=== PATIENT | male | born 1955 | race African-American/Black ===

== ENCOUNTER → 2019-01-25 | Outpatient (CLI) | payer OTHER ==
[2019-01-25 09:29] LABS: BASO % 0.5 % (0.0-1.0); EOS # 0.4 10^3/uL (0.0-0.50); EOS % 5.8 % (0.0-3.0); HEMATOCRIT 27.6 % (42.0-52.0); HEMOGLOBIN 8.7 g/dl (13.5-17.5); LYMPH # 2.8 10^3/uL (1.5-4.5); LYMPH % 46.1 % (24.0-44.0); MEAN CORPUSCULAR HEMOGLOBIN 30.5 pg (27.0-33.0); MEAN CORPUSCULAR HGB CONC 31.5 g/dl (32.0-36.5); MEAN CORPUSCULAR VOLUME 96.8 fl (80.0-96.0); MONO # 0.5 10^3/uL (0.0-0.8); MONO % 7.4 % (0.0-5.0); NEUTROPHILS # 2.4 10^3/uL (1.8-7.7); PLATELET COUNT, AUTOMATED 325 10^3/uL (150-450); RED BLOOD COUNT 2.85 10^6/uL (4.30-6.10); WHITE BLOOD COUNT 6.1 10^3/uL (4.0-10.0)
[2019-01-25 09:49] LABS: HEMOGLOBIN A1c 5.4 %
[2019-01-25 10:02] LABS: APPEARANCE, URINE CLEAR (CLEAR); BACTERIA, URINE AUTO NEGATIVE (NEGATIVE); BILIRUBIN, URINE AUTO NEGATIVE (NEGATIVE); BLOOD, URINE BLOOD NEGATIVE (NEGATIVE); COLOR, URINE YELLOW (YELLOW); GLUCOSE, URINE (UA) AUTO NEGATIVE (NEGATIVE); KETONE, URINE AUTO TRACE mg/dL (NEGATIVE); LEUKOCYTE ESTERASE, URINE AUTO NEGATIVE (NEGATIVE); MUCUS, URINE SMALL (NEGATIVE); NITRITE, URINE AUTO NEGATIVE (NEGATIVE); PROTEIN, URINE AUTO NEGATIVE (NEGATIVE); RBC, URINE AUTO 2 /HPF (0-3); SPECIFIC GRAVITY URINE AUTO 1.018 (1.002-1.035); SQUAMOUS EPITHELIAL CELL UR AU 0 /HPF (0-6); UROBILINOGEN, URINE AUTO 0.2 mg/dL (0.0-2.0); WBC, URINE AUTO 0 /HPF (0-3)
[2019-01-25 10:03] LABS: ALT/SGPT 11 U/L (12-78); BILIRUBIN,TOTAL 0.3 MG/DL (0.2-1.0); BLOOD UREA NITROGEN 11 MG/DL (7-18); CALCIUM LEVEL 8.5 MG/DL (8.8-10.2); CARBON DIOXIDE LEVEL 25 MEQ/L (21-32); CHLORIDE LEVEL 109 MEQ/L (98-107); CHOLESTEROL LEVEL 236 MG/DL (<200); CREATININE FOR GFR 1.13 MG/DL (0.70-1.30); GLOMERULAR FILTRATION RATE > 60.0 (>49); GLUCOSE, FASTING 73 MG/DL (70-100); HDL CHOLESTEROL 46 MG/DL (>40); LDL CHOLESTEROL 164 MG/DL (<100); NON-HDL-C 190 MG/DL; PROSTATIC SPECIFIC AG MONITOR < 0.01 NG/ML (< 4.00); SODIUM LEVEL 139 MEQ/L (136-145); TOTAL PROTEIN 7.1 GM/DL (6.4-8.2); TRIGLYCERIDES LEVEL 130 MG/DL (<150)
[2019-01-25 10:04] LABS: TOTAL 25(OH) VITAMIN D 8.8 NG/ML (30.0-100.0)
[2019-01-26 14:43] LABS: Lyme Disease IgG/IgM Antibodie <0.91 ISR (0.00-0.90); Lyme Disease IgM Ab Quantitati <0.80 index (0.00-0.79)
== END ==
LOC: M LAB 08:30
PROVIDERS: ATTEND Family Medicine
DX: Z13.228 Encounter for screening for other metabolic disorders (principal); Z12.5 Encounter for screening for malignant neoplasm of prostate

== ENCOUNTER → 2019-04-30 | Outpatient (REF) | payer OTHER, MEDICAID ==
[2019-04-30 16:03] LABS: BASO % 0.5 % (0.0-1.0); EOS # 0.3 10^3/uL (0.0-0.50); HEMATOCRIT 30.7 % (42.0-52.0); LYMPH # 3.8 10^3/uL (1.5-4.5); LYMPH % 46.1 % (24.0-44.0); MEAN CORPUSCULAR HEMOGLOBIN 31.5 pg (27.0-33.0); MEAN CORPUSCULAR HGB CONC 32.6 g/dl (32.0-36.5); MEAN CORPUSCULAR VOLUME 96.8 fl (80.0-96.0); MONO # 0.6 10^3/uL (0.0-0.8); MONO % 7.7 % (0.0-5.0); NEUTROPHILS # 3.4 10^3/uL (1.8-7.7); NEUTROPHILS % 41.5 % (36.0-66.0); PLATELET COUNT, AUTOMATED 392 10^3/uL (150-450); RED BLOOD COUNT 3.17 10^6/uL (4.30-6.10); WHITE BLOOD COUNT 8.2 10^3/uL (4.0-10.0)
== END ==
LOC: M LAB REF 15:26
PROVIDERS: ATTEND Family Medicine
DX: D64.89 Other specified anemias (principal)

== ENCOUNTER → 2019-05-31 | Outpatient (CLI) | payer OTHER ==
--- NOTE | 2019-05-31 14:36 | REP ---
REASON: Tobacco abuse. COMPARISON: None. As per the screening protocol only lung window images were sent to the read station for interpretation. In the right upper lobe, there is a spiculated lesion which measures approximately 1 cm in its greatest dimension. There is evidence of biapical pleuroparenchymal scarring. The lung paz are hyperexpanded with parenchymal bulla and pleural blebs. There is cylindrical bronchiectasis throughout. Limited evaluation of the mediastinum and pulmonary jeimy show possible anterior carinal adenopathy with a possible 1.1 cm size lymph node difficult to evaluate as per the protocol. There is no definite hilar mass. There are no pleural or pericardial effusions. Limited evaluation of the imaged upper abdomen and imaged osseous structures show no gross abnormalities. IMPRESSION: 1. Spiculated right lung nodule as described above. Diagnostic contrast enhanced CT examination of the chest is recommended as per the revised Fleischner Society criteria. 2. Possible adenopathy as described above. 3. Chronic changes and emphysematous change suspected as described above without priors for comparison. Electronically Signed by David Abreu DO 05/31/2019 02:56 P
== END ==
LOC: M RAD 11:08
PROVIDERS: ATTEND Family Medicine
DX: Z12.2 Encounter for screening for malignant neoplasm of respiratory organs (principal)

== ENCOUNTER → 2019-07-26 | Outpatient (CLI) | payer OTHER ==
[~2019-07-26] MED LIST: ACET-683 PO; ALBU8.5H INH; CYCL10TA PO; D 101000 PO; DOXY100C37 PO; INCR1INH INH; LEVO50TA5 PO; LIDO5DIS41 TD; QVAR80AE8 INH
--- NOTE | 2019-07-26 16:19 | REP ---
CT of the chest without IV contrast: Comparison is the low-dose lung screening CT dated 05/31/2019. There is an irregular spiculated nodule in the right upper lobe on image 38 measuring 1 cm in greatest diameter, similar to the prior study. There is linear stranding extending from this nodule to the lateral pleura and toward the right hilus. This is unchanged. There is a large irregular density in the right lower lobe today, not present previously measuring up to 3.2 cm. This could be an acute infiltrate or an irregular mass. On the comparison study there was an irregular thickened linear density above the left hemidiaphragmatic tone. This lesion has decreased in thickness and now has the appearance of a curvilinear parenchymal scar. There are other curvilinear parenchymal scars in the lower lobes bilaterally. There are numerous bulla throughout the lung paz bilaterally, as previously. There is bronchiectasis, as previously. There are no pleural effusions. There is a precarinal mediastinal node measuring 6 mm, borderline enlarged. There is no other mediastinal lymph node enlargement. There is no axillary lymph node enlargement. In the absence of IV contrast the study is insensitive for hilar lymph node enlargement. There are no pleural effusions. The unenhanced thoracic aorta is unremarkable. There is occasional air throughout the esophagus. This is nonspecific but may indicate a distal esophageal stricture. Cardiac size is normal. There is no pericardial effusion. Upper abdomen: There is no adrenal mass. The visualized areas of the unenhanced liver, pancreas and spleen are unremarkable. Impression: Spiculated right upper lobe nodule as described with linear stranding toward the right hilus and peripheral pleural. This is a category for a lung nodule with the probability of malignancy five - 15%. Follow-up options or 3-month follow-up chest CT and PET scan. New left lower lobe, right lower lobe 3.2 cm irregular lesion, infiltrate versus mass. Correlate clinically. Consider follow-up CT approximate 4-6 weeks. Follow-up to complete resolution is recommended. Borderline enlarged precarinal mediastinal node. Air in the esophagus, possibly indicating distal esophageal stricture. Curvilinear scar in the left lower lobe as described. Bronchiectasis. Electronically Signed by Jamil Magaña MD 07/26/2019 04:11 P
== END ==
LOC: M RAD 14:51
PROVIDERS: ATTEND Family Medicine
DX: R91.8 Other nonspecific abnormal finding of lung field (principal)

== ENCOUNTER 2019-07-30 13:25 | Emergency (ER) | payer OTHER ==
[~2019-07-30] VITALS: Ht 185.4 cm; Wt 68.6 kg
[2019-07-30] MEDS ORDERED: INCR1INH INH (13:37)
[2019-07-30] MEDS ORDERED: ACET-683 PO (13:37)
[2019-07-30] MEDS ORDERED: D 101000 PO (13:37)
[2019-07-30] MEDS ORDERED: LEVO50TA5 PO (13:37)
[2019-07-30] MEDS ORDERED: QVAR80AE8 INH (13:37)
[2019-07-30] MEDS ORDERED: ALBU8.5H INH (13:37)
--- NOTE | 2019-07-30 14:58 | REP ---
Chest x-ray: Two views. History: Shortness of breath. Comparison CT study July 26, 2019. This showed an infiltrate in the right lower lobe and a spiculated or fibrotic nodular area in the right upper lobe. Findings: There is a subtle pattern of increased density overlying the spine on the lateral film and at the right base medially on the frontal view. This is consistent with the infiltrate seen in the right lower lobe on the recent chest CT. It is probably somewhat improved. The spiculated density is not visible radiographically. No new infiltrate is seen. Impression: Subtle right lower lobe infiltrate, probably improved from its appearance on July 26, 2019 CT study. Otherwise no acute disease. Electronically Signed by Bro Mcintyre MD 07/30/2019 06:48 P
[2019-07-30] MEDS ORDERED: LIDO5DIS41 TD (15:58)
[2019-07-30] MEDS ORDERED: CYCL10TA PO (15:58)
[2019-07-30] MEDS ORDERED: DOXY100C37 PO (15:58)
[2019-07-30] MEDS ORDERED: LIDOCAINE 5% (LIDODERM) PATCH TD ONE (16:00)
[2019-07-30] MEDS ORDERED: ACETAMINOPHEN 650MG ER TAB (TYLENOL ARTHRITIS) PO ONE ×2 (16:00→17:00)
[2019-07-30 16:04] VITALS: BP 122/72
[2019-07-30] MEDS ORDERED: ACETAMINOPHEN 325 MG TAB PO ONE (16:15)
[2019-07-30] MEDS ORDERED: **NOTE PATIENT COMMENT** MISC XX SCH (21:00)
== END 2019-07-30 16:22 | disposition home or self-care (01) ==
LOC: M ED 13:25
DX: R91.8 Other nonspecific abnormal finding of lung field (principal); J44.9 Chronic obstructive pulmonary disease, unspecified; G89.29 Other chronic pain; M54.9 Dorsalgia, unspecified; F17.200 Nicotine dependence, unspecified, uncomplicated; Z79.899 Other long term (current) drug therapy

== ENCOUNTER 2019-08-23 08:11 | Day surgery (SDC) | payer OTHER ==
[~2019-08-23] VITALS: Ht 185.4 cm; Wt 66.1 kg
[~2019-08-23 08:11] MED LIST changes: +NS 1,000 ML IV ONE
[2019-08-23] MEDS ORDERED: PROPOFOL 500 MG/50 ML VIAL As Ordered ONE (09:29)
[2019-08-23] MEDS ORDERED: ePHEDrine SULFATE 25 MG/5 ML(5MG/ML) SYRINGE As Ordered ONE (09:29)
[2019-08-23] MEDS ORDERED: PHENYLephrine HCL 500 MCG/5 ML (100MCG/ML) SYRINGE (J2370) As Ordered ONE ×2 (09:29→09:35)
[2019-08-23] MEDS ORDERED: LIDOCAINE 2% INJ 100 MG/5 ML SDV (FOR ANES.) As Ordered ONE (09:29)
[2019-08-23] MEDS ORDERED: fentaNYL 100 MCG/2 ML INJECTION (J3010) As Ordered ONE (09:29)
--- NOTE | 2019-08-23 10:04 | ROOR ---
Patient Name: Niranjan Moore Procedure Date: 08/23/2019 9:14 AM Date of : 1955 Age: 64 Room: [facility] Gender: Male Note Status: Finalized Procedure: Upper GI endoscopy Indications: Weight loss Providers: Kelechi Turner MD Referring MD: Sergo DIANA MD Requesting Provider: Medicines: Monitored Anesthesia Care Complications: No immediate complications. Procedure: Pre-Anesthesia Assessment: - Prior to the procedure, a History and Physical was performed, and patient medications and allergies were reviewed. The patient is competent. The risks and benefits of the procedure and the sedation options and risks were discussed with the patient. All questions were answered and informed consent was obtained. Patient identification and proposed procedure were verified by the physician, the nurse and the anesthesiologist in the procedure room. Mental Status Examination: alert and oriented. Airway Examination: normal oropharyngeal airway and neck mobility. Respiratory Examination: clear to auscultation. CV Examination: normal. Prophylactic Antibiotics: The patient does not require prophylactic antibiotics. Prior Anticoagulants: The patient has taken no previous anticoagulant or antiplatelet agents. ASA Grade Assessment: III - A patient with severe systemic disease. After reviewing the risks and benefits, the patient was deemed in satisfactory condition to undergo the procedure. The anesthesia plan was to use monitored anesthesia care (MAC). Immediately prior to administration of medications, the patient was re-assessed for adequacy to receive sedatives. The heart rate, respiratory rate, oxygen saturations, blood pressure, adequacy of pulmonary ventilation, and response to care were monitored throughout the procedure. The physical status of the patient was re-assessed after the procedure. The Endoscope was introduced through the mouth, and advanced to the second part of duodenum. The upper GI endoscopy was accomplished without difficulty. The patient tolerated the procedure well. Findings: The Z-line was regular and was found 45 cm from the incisors. The examined esophagus was normal. Scattered moderate inflammation characterized by erosions, erythema, friability and granularity was found in the gastric body and in the gastric antrum. Biopsies were taken with a cold forceps for Helicobacter pylori testing. Verification of patient identification for the specimen was done by the physician and nurse using the patient's name, date and medical record number. Estimated blood loss was minimal. The duodenal bulb and second portion of the duodenum were normal. Biopsies for histology were taken with a cold forceps for evaluation of celiac disease. Impression: - Z-line regular, 45 cm from the incisors. - Normal esophagus. - Gastritis. Biopsied. - Normal duodenal bulb and second portion of the duodenum. Biopsied. Recommendation: - Patient has a contact number available for emergencies. The signs and symptoms of potential delayed complications were discussed with the patient. Return to normal activities tomorrow. Written discharge instructions were provided to the patient. - Resume regular diet. - Continue present medications. - Await pathology results. - Return to GI clinic in [facility] (address [address], [address], [place] [address]) in 4 -- 6 weeks. Please call GI clinic @ [phone] for apppointment date and time. - Return to primary care physician. Kelechi Turner MD Kelechi Turner MD 08/23/2019 10:03:55 AM Electronically signed by Kelechi Turner MD Number of Addenda: 0 Note Initiated On: 08/23/2019 9:14 AM Estimated Blood Loss: Estimated blood loss was minimal.
[2019-08-23 10:25] VITALS: BP 75/50
--- NOTE | 2019-09-04 08:36 | ROOR ---
Patient Name: Niranjan Moore Procedure Date: 08/23/2019 9:15 AM Date of : 1955 Age: 64 Room: [facility] Gender: Male Note Status: Finalized Procedure: Colonoscopy Indications: Hematochezia, Iron deficiency anemia, Weight loss Providers: Kelechi Turner MD Referring MD: Sergo DIANA MD Requesting Provider: Medicines: Monitored Anesthesia Care Complications: No immediate complications. Procedure: Pre-Anesthesia Assessment: - Prior to the procedure, a History and Physical was performed, and patient medications and allergies were reviewed. The patient is competent. The risks and benefits of the procedure and the sedation options and risks were discussed with the patient. All questions were answered and informed consent was obtained. Patient identification and proposed procedure were verified by the physician, the nurse and the anesthesiologist in the pre-procedure area in the procedure room. Mental Status Examination: normal. Airway Examination: normal oropharyngeal airway and neck mobility. Respiratory Examination: clear to auscultation. CV Examination: normal. Prophylactic Antibiotics: The patient does not require prophylactic antibiotics. Prior Anticoagulants: The patient has taken no previous anticoagulant or antiplatelet agents. ASA Grade Assessment: II - A patient with mild systemic disease. After reviewing the risks and benefits, the patient was deemed in satisfactory condition to undergo the procedure. The anesthesia plan was to use monitored anesthesia care (MAC). Immediately prior to administration of medications, the patient was re-assessed for adequacy to receive sedatives. The heart rate, respiratory rate, oxygen saturations, blood pressure, adequacy of pulmonary ventilation, and response to care were monitored throughout the procedure. The physical status of the patient was re-assessed after the procedure. The Colonoscope was introduced through the anus and advanced to the terminal ileum, with identification of the appendiceal orifice and IC valve. The colonoscopy was performed without difficulty. The patient tolerated the procedure well. The quality of the bowel preparation was good. The terminal ileum, ileocecal valve, appendiceal orifice, and rectum were photographed. Scope insertion time was 3 minutes. Scope withdrawal time was 9 minutes. The total duration of the procedure was 12 minutes. Findings: The perianal and digital rectal examinations were normal. The terminal ileum appeared normal. Four sessile polyps were found in the transverse colon and ascending colon. The polyps were 4 to 6 mm in size. These polyps were removed with a cold biopsy forceps. Resection and retrieval were complete. Verification of patient identification for the specimen was done by the physician and nurse using the patient's name, date and medical record number. Estimated blood loss was minimal. Non-bleeding external and internal hemorrhoids were found during retroflexion. The hemorrhoids were medium-sized. Impression: - The examined portion of the ileum was normal. - Four 4 to 6 mm polyps in the transverse colon and in the ascending colon, removed with a cold biopsy forceps. Resected and retrieved. - Non-bleeding external and internal hemorrhoids. Recommendation: - Patient has a contact number available for emergencies. The signs and symptoms of potential delayed complications were discussed with the patient. Return to normal activities tomorrow. Written discharge instructions were provided to the patient. - High fiber diet. - Continue present medications. - Await pathology results. - Repeat colonoscopy in 3 - 5 years for surveillance based on pathology results. - Return to GI clinic in [facility] (address [address], [address], [place], [facility]) in 4 -- 6 weeks. Please call GI clinic @ [phone] for apppointment date and time. - Return to primary care physician. Kelechi Turner MD Kelechi Turner MD 09/04/2019 8:36:08 AM Electronically signed by Kelechi Turner MD Number of Addenda: 0 Note Initiated On: 08/23/2019 9:15 AM Estimated Blood Loss: Estimated blood loss was minimal.
== END 2019-08-23 11:20 | disposition home or self-care (01) ==
LOC: M OPP 08:11
PROVIDERS: ATTEND Internal Medicine Gastroenterology
DX: D12.3 Benign neoplasm of transverse colon (principal); D12.2 Benign neoplasm of ascending colon; K92.1 Melena; D50.9 Iron deficiency anemia, unspecified; K29.70 Gastritis, unspecified, without bleeding; R63.4 Abnormal weight loss; F17.210 Nicotine dependence, cigarettes, uncomplicated; Z79.899 Other long term (current) drug therapy; Z92.3 Personal history of irradiation
CPT/HCPCS: 43239; 45380; 88305; J2370; J3010

== ENCOUNTER 2019-10-21 23:29 | Emergency (ER) | payer OTHER ==
[~2019-10-21] VITALS: Ht 182.9 cm; Wt 66.9 kg
[~2019-10-21 23:29] MED LIST changes: -NS 1,000 ML IV ONE
[2019-10-22 00:20] LABS: BASO % 0.3 % (0.0-1.0); EOS # 0.1 10^3/uL (0.0-0.5); EOS % 1.7 % (0.0-3.0); HEMATOCRIT 23.8 % (42.0-52.0); HEMOGLOBIN 7.7 g/dl (13.5-17.5); LYMPH # 2.3 10^3/uL (1.5-5.0); LYMPH % 34.9 % (24.0-44.0); MEAN CORPUSCULAR HEMOGLOBIN 31.3 pg (27.0-33.0); MEAN CORPUSCULAR HGB CONC 32.4 g/dl (32.0-36.5); MEAN CORPUSCULAR VOLUME 96.7 fl (80.0-96.0); MONO # 0.5 10^3/uL (0.0-0.8); MONO % 7.8 % (0.0-5.0); NEUTROPHILS # 3.5 10^3/uL (1.5-8.5); PLATELET COUNT, AUTOMATED 393 10^3/uL (150-450); RED BLOOD COUNT 2.46 10^6/uL (4.30-6.10); WHITE BLOOD COUNT 6.4 10^3/uL (4.0-10.0)
[2019-10-22 00:32] LABS: OSMOLALITY SERUM 273 MOSM/KG (280-301)
--- NOTE | 2019-10-22 00:44 | REPVR ---
PROCEDURE INFORMATION: Exam: CT Head Without Contrast Exam date and time: 10/21/2019 11:42 PM Age: 64 years old Clinical indication: Coma or unconsciousness; Additional info: Altered mental status TECHNIQUE: Imaging protocol: Computed tomography of the head without contrast. Radiation optimization: All CT scans at this facility use at least one of these dose optimization techniques: automated exposure control; mA and/or kV adjustment per patient size (includes targeted exams where dose is matched to clinical indication); or iterative reconstruction. COMPARISON: No relevant prior studies available. FINDINGS: Brain: No intracranial mass, mass effect or midline shift. No acute intracranial hemorrhage. No CT evidence of acute cortical infarct. Ventricles: Ventricles, cisterns, and sulci are normal in size for age. Bones/joints: No calvarial fracture or destructive process. Bilateral frontal calvarial michael hole is Sinuses: Imaged paranasal sinuses are clear. Mastoid air cells: Mastoid air cells are normally aerated. Orbits: Imaged orbits are unremarkable. Soft tissues: No focal extracranial soft tissue swelling. IMPRESSION: No acute or concerning focal intracranial abnormality. Electronically signed by: Jersey Baker On 10/22/2019 00:43:57 AM
[2019-10-22 00:45] LABS: AMPHETAMINES LEVEL URINE NEGATIVE (NEGATIVE); BARBITURATES URINE NEGATIVE (NEGATIVE); BENZODIAZEPINES URINE NEGATIVE (NEGATIVE); CANNABINOIDS URINE POSITIVE (NEGATIVE); COCAINE METABOLITE URINE NEGATIVE (NEGATIVE); METHADONE URINE NEGATIVE (NEGATIVE); OPIATES URINE NEGATIVE (NEGATIVE); PHENCYCLIDINE URINE NEGATIVE (NEGATIVE)
[2019-10-22] MEDS ORDERED: NS 1,000 ML IV ONE (00:45)
[2019-10-22 01:03] LABS: ACETAMINOPHEN LEVEL < 2.0 UG/ML (10.0-30.0); ALBUMIN 3.6 GM/DL (3.2-5.2); ALT/SGPT 12 U/L (12-78); BILIRUBIN,DIRECT 0.2 MG/DL (0.0-0.2); BILIRUBIN,TOTAL 0.5 MG/DL (0.2-1.0); BLOOD UREA NITROGEN 15 MG/DL (7-18); CALCIUM LEVEL 8.3 MG/DL (8.8-10.2); CARBON DIOXIDE LEVEL 19 MEQ/L (21-32); CHLORIDE LEVEL 99 MEQ/L (98-107); CK-MB VALUE MASS 10.7 NG/ML (<3.6); CPK CREATINE PHOSPHOKINASE 1614 U/L (39-308); CREATININE FOR GFR 1.26 MG/DL (0.70-1.30); ETHYL ALCOHOL (ETHANOL) < 0.003 % (0.000-0.010); GLOMERULAR FILTRATION RATE > 60.0 (>49); GLUCOSE, FASTING 72 MG/DL (70-100); MB/CK RELATIVE INDEX 0.66 (< OR =4); POTASSIUM SERUM 4.2 MEQ/L (3.5-5.1); SALICYLATE LEVEL 3.3 MG/DL (5.0-30.0); SODIUM LEVEL 132 MEQ/L (136-145); TOTAL PROTEIN 6.7 GM/DL (6.4-8.2); TROPONIN I < 0.02 NG/ML (< 0.10)
[2019-10-22] MEDS ORDERED: levETIRAcetam INJection 1,000 MG in D5W 100 ML IV ONE (02:45)
[2019-10-22] MEDS ORDERED: KEPP1TAB PO (03:35)
[2019-10-22 04:47] VITALS: BP 99/66
--- NOTE | 2019-10-22 08:36 | REP ---
Clinical: Altered mental status . Comparison: 07/30/2019 . Findings: The mediastinum and cardiac silhouette are stable and within normal limits for portable technique. The lung paz are clear without acute consolidation, effusion, or pneumothorax. Skeletal structures are intact. Impression: No acute cardiopulmonary process appreciated. Electronically Signed by Aly Worley MD 10/22/2019 08:27 A
--- NOTE | 2019-10-23 07:51 | ECGEPIP ---
[facility] - ED Test Date: 2019-10-22 Pat Name: JORDI PAUL Department: Room: - Gender: Male [employer]: MAIN : 1955 Requested By: MEREDITH Rowell Order Number: [id number] Reading MD: Paige Greenberg Measurements Intervals [place] Rate: 63 P: 74 VA: 199 QRS: 59 QRSD: 78 T: 58 QT: 437 QTc: 450 Interpretive Statements SINUS RHYTHM Prolonged QT interval NSTTW abnormalities NO PRIOR Electronically Signed on 10-23-2019 7:51:25 EST by Paige Greenberg
== END 2019-10-22 05:00 | disposition home or self-care (01) ==
LOC: M ED 23:29
DX: R56.9 Unspecified convulsions (principal); R91.8 Other nonspecific abnormal finding of lung field; Z79.51 Long term (current) use of inhaled steroids; Z79.899 Other long term (current) drug therapy
CPT/HCPCS: 70450; 71045; 80048; 80076; 80307; 82140; 82550; 82553; 83605; 83930; 84443; 85025; 93005; 93041; 94760; 96361; 96374; 99285; G0480; J1953

== ENCOUNTER → 2019-11-12 | Outpatient (CLI) | payer OTHER ==
[~2019-11-12] MED LIST changes: +KEPP1TAB PO
[2019-11-12 12:39] LABS: BASO # 0.1 10^3/uL (0.0-0.2); BASO % 0.9 % (0.0-1.0); EOS # 0.3 10^3/uL (0.0-0.5); EOS % 4.6 % (0.0-3.0); HEMATOCRIT 30.4 % (42.0-52.0); HEMOGLOBIN 9.9 g/dl (13.5-17.5); LYMPH % 54.9 % (24.0-44.0); MEAN CORPUSCULAR HEMOGLOBIN 31.4 pg (27.0-33.0); MEAN CORPUSCULAR HGB CONC 32.6 g/dl (32.0-36.5); MEAN CORPUSCULAR VOLUME 96.5 fl (80.0-96.0); MONO # 0.4 10^3/uL (0.0-0.8); MONO % 6.6 % (0.0-5.0); NEUTROPHILS # 1.8 10^3/uL (1.5-8.5); NEUTROPHILS % 32.8 % (36.0-66.0); PLATELET COUNT, AUTOMATED 211 10^3/uL (150-450); RED BLOOD COUNT 3.15 10^6/uL (4.30-6.10); WHITE BLOOD COUNT 5.5 10^3/uL (4.0-10.0)
[2019-11-12 12:54] LABS: BLOOD UREA NITROGEN 16 MG/DL (7-18); FERRITIN 22 NG/ML (26-388); GLOMERULAR FILTRATION RATE > 60.0 (>49); IRON (FE) 43 UG/DL (65-175); LDH LACTATE DEHYDROGENASE 216 U/L (87-241); PERCENT SATURATION 12.7 % (19.7-50.0); TOTAL IRON BINDING CAPACITY 339 UG/DL (250-450)
[2019-11-12 13:26] LABS: VITAMIN B12 LEVEL 248 PG/ML
[2019-11-12 13:27] LABS: FOLATE 9.4 NG/ML
[2019-11-15 00:08] LABS: ANTI-PARIETAL CELL ANTIBODY 29.2 Units (0.0-20.0); ERYTHROPOIETIN 21.4 mIU/mL (2.6-18.5); INTRINSIC FACTOR ANTIBODY 1.1 AU/mL (0.0-1.1)
== END ==
LOC: M LAB 11:33
PROVIDERS: ATTEND Internal Medicine Gastroenterology
DX: D50.9 Iron deficiency anemia, unspecified (principal)

== ENCOUNTER → 2020-01-21 | Outpatient (REF) | payer OTHER ==
[2020-01-21 13:29] LABS: BASO # 0.1 10^3/uL (0.0-0.2); BASO % 0.7 % (0.0-1.0); EOS # 0.2 10^3/uL (0.0-0.5); EOS % 2.9 % (0.0-3.0); HEMATOCRIT 30.4 % (42.0-52.0); HEMOGLOBIN 9.8 g/dl (13.5-17.5); LYMPH # 3.3 10^3/uL (1.5-5.0); LYMPH % 48.6 % (24.0-44.0); MEAN CORPUSCULAR HEMOGLOBIN 31.5 pg (27.0-33.0); MEAN CORPUSCULAR HGB CONC 32.2 g/dl (32.0-36.5); MEAN CORPUSCULAR VOLUME 97.7 fl (80.0-96.0); MONO # 0.6 10^3/uL (0.0-0.8); MONO % 8.2 % (0.0-5.0); NEUTROPHILS # 2.7 10^3/uL (1.5-8.5); NEUTROPHILS % 39.3 % (36.0-66.0); PLATELET COUNT, AUTOMATED 400 10^3/uL (150-450); RED BLOOD COUNT 3.11 10^6/uL (4.30-6.10); WHITE BLOOD COUNT 6.9 10^3/uL (4.0-10.0)
[2020-01-21 13:50] LABS: ALBUMIN 3.9 GM/DL (3.2-5.2); ALT/SGPT 15 U/L (12-78); BILIRUBIN,TOTAL 0.3 MG/DL (0.2-1.0); BLOOD UREA NITROGEN 21 MG/DL (7-18); CALCIUM LEVEL 9.5 MG/DL (8.8-10.2); CARBON DIOXIDE LEVEL 28 MEQ/L (21-32); CHLORIDE LEVEL 106 MEQ/L (98-107); CHOLESTEROL LEVEL 257 MG/DL (<200); CHOLESTEROL RISK RATIO 5.354 (<5); CREATININE FOR GFR 1.21 MG/DL (0.70-1.30); FREE T4 0.64 NG/DL (0.76-1.46); GLOMERULAR FILTRATION RATE > 60.0 (>49); GLUCOSE, FASTING 80 MG/DL (70-100); HDL CHOLESTEROL 48 MG/DL (>40); LDL CHOLESTEROL 186 MG/DL (<100); NON-HDL-C 209 MG/DL; POTASSIUM SERUM 4.4 MEQ/L (3.5-5.1); SODIUM LEVEL 136 MEQ/L (136-145); TOTAL 25(OH) VITAMIN D 32.1 NG/ML (30.0-100.0); TOTAL PROTEIN 7.5 GM/DL (6.4-8.2); TRIGLYCERIDES LEVEL 117 MG/DL (<150)
== END ==
LOC: M LAB REF 12:15
PROVIDERS: ATTEND Physician Assistant
DX: E03.9 Hypothyroidism, unspecified (principal); G40.909 Epilepsy, unspecified, not intractable, without status epilepticus; E55.9 Vitamin D deficiency, unspecified; D64.9 Anemia, unspecified; J44.9 Chronic obstructive pulmonary disease, unspecified; R91.8 Other nonspecific abnormal finding of lung field

== ENCOUNTER → 2020-02-21 | Outpatient (CLI) | payer OTHER ==
[~2020-02-21] MED LIST changes: +CYCL-707 PO; -CYCL10TA PO
--- NOTE | 2020-02-21 15:41 | REP ---
CT CHEST WITHOUT IV CONTRAST: CT chest performed without IV contrast. Sagittal and coronal reconstruction images are performed. Comparison is made with prior CT exams of 07/26/2019 and 05/31/2019. Once again, in the right upper lobe, there is a focal spiculated density. There is an adjacent moderately dilated bronchial. The spiculated density is associated with several thin linear radiating densities both medially and laterally. The central thickened soft tissue component measures about measures about 1.7 x 0.7 x 1.0 cm. There is no definite change when compared to the prior studies. Previously noted infiltrate in the right lower lobe on the 07/26/2019 exam has resolved. No new nodule is seen. There is mild diffuse interstitial fibrosis and mild to moderate emphysematous change. There is biapical pleural and parenchymal scarring unchanged. I do not see significant axillary or mediastinal adenopathy. The heart is not enlarged. There is no pleural or pericardial effusion. Thoracic aorta is normal in caliber. There are degenerative changes of the spine. IMPRESSION: Stable focal spiculated density right upper lobe as discussed above with no change compared to prior CT 07/26/2019. If no intervention is planned then recommend followup CT in 6 months. Electronically Signed by Jamil Almazan MD 02/21/2020 04:03 P
== END ==
LOC: M RAD 12:32
PROVIDERS: ATTEND Internal Medicine Pulmonary Disease
DX: R91.8 Other nonspecific abnormal finding of lung field (principal)

== ENCOUNTER → 2020-02-21 | Outpatient (CLI) | payer OTHER ==
[2020-02-21 14:17] LABS: BASO # 0.1 10^3/uL (0.0-0.2); BASO % 0.7 % (0.0-1.0); EOS # 0.3 10^3/uL (0.0-0.5); EOS % 3.5 % (0.0-3.0); HEMATOCRIT 31.1 % (42.0-52.0); LYMPH # 3.5 10^3/uL (1.5-5.0); MEAN CORPUSCULAR HEMOGLOBIN 30.9 pg (27.0-33.0); MEAN CORPUSCULAR HGB CONC 32.2 g/dl (32.0-36.5); MONO # 0.5 10^3/uL (0.0-0.8); MONO % 6.1 % (0.0-5.0); NEUTROPHILS # 3.3 10^3/uL (1.5-8.5); NEUTROPHILS % 43.3 % (36.0-66.0); PLATELET COUNT, AUTOMATED 449 10^3/uL (150-450); RED BLOOD COUNT 3.24 10^6/uL (4.30-6.10); WHITE BLOOD COUNT 7.5 10^3/uL (4.0-10.0)
[2020-02-21 14:54] LABS: BLOOD UREA NITROGEN 15 MG/DL (7-18); CREATININE FOR GFR 1.23 MG/DL (0.70-1.30); FERRITIN 16 NG/ML (26-388); GLOMERULAR FILTRATION RATE > 60.0 (>49); IRON (FE) 59 UG/DL (65-175); PERCENT SATURATION 15.7 % (19.7-50.0); TOTAL IRON BINDING CAPACITY 376 UG/DL (250-450)
[2020-02-21 15:01] LABS: VITAMIN B12 LEVEL 290 PG/ML
[2020-02-21 15:02] LABS: FOLATE 18.3 NG/ML
== END ==
LOC: M LAB 13:26
PROVIDERS: ATTEND Internal Medicine Gastroenterology
DX: D51.3 Other dietary vitamin B12 deficiency anemia (principal)

== ENCOUNTER → 2020-03-06 | Outpatient (REF) | payer OTHER ==
[2020-03-06 12:18] LABS: BASO % 0.5 % (0.0-1.0); EOS # 0.2 10^3/uL (0.0-0.5); HEMATOCRIT 29.4 % (42.0-52.0); HEMOGLOBIN 9.4 g/dl (13.5-17.5); LYMPH # 3.4 10^3/uL (1.5-5.0); LYMPH % 45.3 % (24.0-44.0); MONO # 0.4 10^3/uL (0.0-0.8); MONO % 5.8 % (0.0-5.0); NEUTROPHILS # 3.4 10^3/uL (1.5-8.5); NEUTROPHILS % 45.3 % (36.0-66.0); PLATELET COUNT, AUTOMATED 346 10^3/uL (150-450); RED BLOOD COUNT 3.03 10^6/uL (4.30-6.10); WHITE BLOOD COUNT 7.6 10^3/uL (4.0-10.0)
[2020-03-06 12:53] LABS: FREE T4 0.93 NG/DL (0.76-1.46); THYROID STIMULATING HORMONE 3.94 uIU/ML (0.358-3.740)
== END ==
LOC: M LAB REF 11:55
PROVIDERS: ATTEND Physician Assistant
DX: E03.9 Hypothyroidism, unspecified (principal); D64.9 Anemia, unspecified

== ENCOUNTER → 2020-04-21 | Outpatient (CLI) | payer OTHER ==
[~2020-04-21] MED LIST changes: +ATOR1TAB21 PO; +B-1225002 SL; +FERR325T3 PO; +PEPC1TAB5 PO; +STIO1AER IN; +VITA1CAP25 PO
[2020-04-21 11:17] LABS: BASO % 0.5 % (0.0-1.0); EOS # 0.2 10^3/uL (0.0-0.5); EOS % 3.6 % (0.0-3.0); HEMATOCRIT 32.4 % (42.0-52.0); HEMOGLOBIN 10.1 g/dl (13.5-17.5); LYMPH # 3.6 10^3/uL (1.5-5.0); LYMPH % 53.7 % (24.0-44.0); MEAN CORPUSCULAR HEMOGLOBIN 30.7 pg (27.0-33.0); MEAN CORPUSCULAR HGB CONC 31.2 g/dl (32.0-36.5); MEAN CORPUSCULAR VOLUME 98.5 fl (80.0-96.0); MONO # 0.5 10^3/uL (0.0-0.8); MONO % 7.4 % (0.0-5.0); NEUTROPHILS # 2.3 10^3/uL (1.5-8.5); NEUTROPHILS % 34.6 % (36.0-66.0); PLATELET COUNT, AUTOMATED 286 10^3/uL (150-450); RED BLOOD COUNT 3.29 10^6/uL (4.30-6.10); WHITE BLOOD COUNT 6.6 10^3/uL (4.0-10.0)
[2020-04-21 11:29] LABS: FOLATE 19.8 NG/ML (>5.4)
--- NOTE | 2020-04-21 16:33 | REP ---
REASON: Abnormal LFTs. Patient has no other complaints. Ultrasonographic evaluation of the liver, gallbladder, pancreas, kidneys, and spleen show no abnormalities. The common bile duct measures 4 mm. The right kidney measures 9.5 x 4.4 x 3.2 cm and the left kidney measures 10.4 x 4.7 x 4.9 cm. The maximal splenic length is 9 cm. IMPRESSION: Ultrasound findings are within normal limits. Electronically Signed by David Abreu DO 04/21/2020 05:32 P
== END ==
LOC: M LRY 08:41
PROVIDERS: ATTEND Internal Medicine Hematology & Oncology
DX: D50.9 Iron deficiency anemia, unspecified (principal)

== ENCOUNTER → 2020-07-14 | Outpatient (CLI) | payer OTHER ==
--- NOTE | 2020-07-22 14:56 | REP ---
PET CT HISTORY: Solitary pulmonary nodules. Right upper lobe lung nodule. COMPARISON: CT study of the chest from 02/21/2020. TECHNIQUE: 53 minutes following the intravenous injection of an 8.63 mCi dose of F18 fluorodeoxyglucose (FDG), three-dimensional PET CT imaging is acquired from the skull base to the proximal thighs. PET CT FINDINGS: The somewhat spiculated appearing nodular opacity in the right upper lobe does not show hypermetabolic uptake. Maximum standard uptake value within this area is only 0.83. It has a somewhat linear morphology with upward retraction of the adjacent fissure. There is no other abnormal hypermetabolic uptake in the thorax. Head and neck soft tissues are unremarkable. No abnormal hypermetabolic uptake is seen in the abdomen or pelvis. IMPRESSION: Negative PET scintigraphy. The somewhat spiculated right upper lobe lesion does not show hypermetabolic uptake. Follow-up is advised. MTDD
== END ==
LOC: M PLARAD 10:38
PROVIDERS: ATTEND Internal Medicine Hematology & Oncology
DX: C34.11 Malignant neoplasm of upper lobe, right bronchus or lung (principal)
CPT/HCPCS: 78815; A9552

== ENCOUNTER → 2023-06-30 | Outpatient (CLI) | payer MEDICARE, MEDICAID ==
[~2023-06-30] MED LIST changes: +DOXY-443 PO; -DOXY100C37 PO
[2023-06-30 16:07] LABS: BASO # 0.1 10^3/uL (0.0-0.2); BASO % 0.9 % (0.0-1.0); EOS # 0.2 10^3/uL (0.0-0.5); HEMOGLOBIN 9.9 g/dl (13.5-17.5); LYMPH # 3.4 10^3/uL (1.5-5.0); LYMPH % 50.9 % (24.0-44.0); MEAN CORPUSCULAR HEMOGLOBIN 30.9 pg (27.0-33.0); MEAN CORPUSCULAR HGB CONC 31.9 g/dl (32.0-36.5); MEAN CORPUSCULAR VOLUME 96.9 fl (80.0-96.0); MONO # 0.4 10^3/uL (0.0-0.8); MONO % 6.7 % (2.0-8.0); NEUTROPHILS # 2.5 10^3/uL (1.5-8.5); PLATELET COUNT, AUTOMATED 340 10^3/uL (150-450); WHITE BLOOD COUNT 6.6 10^3/uL (4.0-10.0)
[2023-06-30 16:28] LABS: TOTAL IRON BINDING CAPACITY 289 UG/DL (250-425)
[2023-06-30 16:29] LABS: IRON (FE) 52 UG/DL (65-175)
[2023-06-30 16:30] LABS: ALBUMIN 4.3 G/DL (3.2-5.2); ALKALINE PHOSPHATASE 57 U/L (46-116); ALT/SGPT 16 U/L (7.0-40); AST/SGOT 22 U/L (<34); BILIRUBIN,TOTAL 0.5 MG/DL (0.3-1.2); BLOOD UREA NITROGEN 13 MG/DL (9-23); CALCIUM LEVEL 8.9 MG/DL (8.3-10.6); CARBON DIOXIDE LEVEL 30 MMOL/L (20-31); CHLORIDE LEVEL 103 MMOL/L (98-107); CHOLESTEROL LEVEL 190 MG/DL (<200); CHOLESTEROL RISK RATIO 3.58 (<5); CREATININE FOR GFR 1.13 MG/DL (0.70-1.30); GLOMERULAR FILTRATION RATE > 60.0 (>49); GLUCOSE, FASTING 83 MG/DL (74-106); LDL CHOLESTEROL 116.8 MG/DL (<100); MAGNESIUM LEVEL 2.2 MG/DL (1.8-2.4); POTASSIUM SERUM 4.6 MMOL/L (3.5-5.1); SODIUM LEVEL 135 MMOL/L (136-145); TOTAL PROTEIN 7.2 G/DL (5.7-8.2); TRIGLYCERIDES LEVEL 101 MG/DL (<150)
[2023-06-30 16:33] LABS: FERRITIN 123.7 NG/ML (10.5-307.3)
[2023-06-30 16:34] LABS: THYROID STIMULATING HORMONE 24.676 uIU/ML (0.55-4.78)
[2023-06-30 16:36] LABS: TOTAL 25(OH) VITAMIN D 7.2 NG/ML (20.0-100.0)
[2023-06-30 16:38] LABS: VITAMIN B12 LEVEL 377 PG/ML (211-911)
[2023-06-30 17:10] LABS: HEMOGLOBIN A1c 6.2 % (4.0-6.0)
== END ==
LOC: M PLAIMG 12:55
PROVIDERS: ATTEND Nurse Practitioner Family
DX: Z12.5 Encounter for screening for malignant neoplasm of prostate (principal); E53.8 Deficiency of other specified B group vitamins; D50.9 Iron deficiency anemia, unspecified; E55.9 Vitamin D deficiency, unspecified; R53.83 Other fatigue; R63.6 Underweight; M62.831 Muscle spasm of calf; Z11.9 Encounter for screening for infectious and parasitic diseases, unspecified
CPT/HCPCS: 36415; 71250; 80053; 80061; 82306; 82607; 82728; 82746; 83036; 83550; 83735; 84443; 85025; 86780; G0103

== ENCOUNTER → 2023-09-29 | Outpatient (REF) | payer MEDICARE, MEDICAID | LOC: M LAB REF 16:28 | PROVIDERS: ATTEND Nurse Practitioner Family | DX: E03.9 Hypothyroidism, unspecified (principal) ==

== ENCOUNTER → 2023-11-28 | Outpatient (REF) | payer MEDICARE, MEDICAID ==
[2023-11-28 17:58] LABS: FREE T4 0.64 NG/DL (0.89-1.76)
[2023-11-28 17:59] LABS: THYROID STIMULATING HORMONE 13.926 uIU/ML (0.55-4.78)
== END ==
LOC: M LAB REF 16:36
PROVIDERS: ATTEND Nurse Practitioner Family
DX: E03.9 Hypothyroidism, unspecified (principal)

== ENCOUNTER 2024-01-02 11:34 | Day surgery (SDC) | payer MEDICARE, MEDICAID ==
[~2024-01-02] VITALS: Ht 185.4 cm; Wt 62.6 kg
[~2024-01-02 11:34] MED LIST changes: +MOTR200T44 PO
[2024-01-02] MEDS: NS 1,000 ML IV ONE (12:51)
[2024-01-02] MEDS ORDERED: fentaNYL 100 MCG/2 ML INJECTION As Ordered ONE (12:54)
[2024-01-02] MEDS ORDERED: propofoL 500 MG/50 ML VIAL As Ordered ONE (12:54)
[2024-01-02] MEDS ORDERED: LIDOCAINE 2% 100MG/5ML SDV (FOR ANES.) As Ordered ONE (12:54)
[2024-01-02] MEDS ORDERED: ePHEDrine SULFATE 25 MG/5 ML(5MG/ML) SYRINGE As Ordered ONE (14:04)
[2024-01-02] MEDS ORDERED: PHENYLephrine 500MCG 5ML (100MCG/ML) SYRINGE As Ordered ONE (14:04)
[2024-01-02 14:09] VITALS: TEMP 98.1
[2024-01-02 14:38] VITALS: BP 101/60; O2SAT 100
== END 2024-01-02 15:08 | disposition home or self-care (01) ==
LOC: M OPP 11:34
PROVIDERS: ATTEND Internal Medicine Gastroenterology
DX: Z86.010 Personal history of colon polyps (principal); K64.8 Other hemorrhoids; K64.4 Residual hemorrhoidal skin tags; K29.40 Chronic atrophic gastritis without bleeding; D51.0 Vitamin B12 deficiency anemia due to intrinsic factor deficiency; K31.89 Other diseases of stomach and duodenum; F17.200 Nicotine dependence, unspecified, uncomplicated; Z79.1 Long term (current) use of non-steroidal anti-inflammatories (NSAID); Z79.51 Long term (current) use of inhaled steroids; Z79.890 Hormone replacement therapy
CPT/HCPCS: 43239; 88305; G0105; J2371; J3010

== ENCOUNTER → 2024-06-21 | Outpatient (REF) | payer OTHER, MEDICAID ==
[~2024-06-21] MED LIST changes: +B-12100010 PO; +DOXY-323 PO; -DOXY-443 PO; +INCR1INH
[2024-06-21 19:10] LABS: CHOLESTEROL RISK RATIO 3.63 (<5); HDL CHOLESTEROL 50.6 MG/DL (>40); NON-HDL-C 133.4 MG/DL
[2024-06-21 19:11] LABS: PSA SCREENING 0.04 NG/ML (< 4.00)
[2024-06-21 19:16] LABS: THYROID STIMULATING HORMONE 9.503 uIU/ML (0.55-4.78)
[2024-06-21 19:17] LABS: TOTAL 25(OH) VITAMIN D 25.7 NG/ML (20.0-100.0)
[2024-06-21 20:00] LABS: HEMOGLOBIN A1c 5.8 % (4.0-6.0)
== END ==
LOC: M LAB REF 16:07
PROVIDERS: ATTEND Nurse Practitioner Family
DX: E03.9 Hypothyroidism, unspecified (principal); E55.9 Vitamin D deficiency, unspecified; R73.9 Hyperglycemia, unspecified; Z13.6 Encounter for screening for cardiovascular disorders; Z12.5 Encounter for screening for malignant neoplasm of prostate

== ENCOUNTER → 2025-07-18 | Outpatient (REF) | payer MEDICARE, MEDICAID ==
[~2025-07-18] MED LIST changes: -DOXY-323 PO; +DOXY-441 PO; +LIDO1ADH93 TD; -LIDO5DIS41 TD
[2025-07-18 16:45] LABS: BASO # 0.0 10^3/uL (0.0-0.2); BASO % 0.6 % (0.0-1.0); EOS # 0.1 10^3/uL (0.0-0.5); EOS % 1.6 % (0.0-3.0); LYMPH # 3.3 10^3/uL (1.5-5.0); LYMPH % 48.4 % (24.0-44.0); MONO # 0.4 10^3/uL (0.0-0.8); MONO % 5.8 % (2.0-8.0); NEUTROPHILS # 2.9 10^3/uL (1.5-8.5); NEUTROPHILS % 43.2 % (36.0-66.0); PLATELET COUNT, AUTOMATED 371 10^3/uL (150-450)
[2025-07-18 17:17] LABS: CHOLESTEROL LEVEL 201.0 MG/DL (<200); CHOLESTEROL RISK RATIO 3.54 (<5); IRON (FE) 62.0 UG/DL (65-175); LDL CHOLESTEROL 122.7 MG/DL (<100); NON-HDL-C 144.3 MG/DL; PERCENT SATURATION 21.9 % (19.7-50.0); PSA SCREENING 0.04 NG/ML (< 4.00); TOTAL 25(OH) VITAMIN D 36.8 NG/ML (20.0-100.0); TRIGLYCERIDES LEVEL 108.0 MG/DL (<150)
[2025-07-18 17:37] LABS: ESTIMATED AVERAGE GLUCOSE 126.0 MG/DL (60-110)
== END ==
LOC: M LAB REF 16:16
PROVIDERS: ATTEND Nurse Practitioner Family
DX: E55.9 Vitamin D deficiency, unspecified (principal); E03.9 Hypothyroidism, unspecified; E78.2 Mixed hyperlipidemia; D50.9 Iron deficiency anemia, unspecified; R63.6 Underweight; Z12.5 Encounter for screening for malignant neoplasm of prostate; Z79.899 Other long term (current) drug therapy
CPT/HCPCS: 80061; 82306; 82728; 83036; 83550; 84443; 85025; G0103

== ENCOUNTER → 2025-09-05 | Outpatient (REF) | payer MEDICARE, MEDICAID | LOC: M LAB REF 16:28 | PROVIDERS: ATTEND Nurse Practitioner Family | DX: E03.9 Hypothyroidism, unspecified (principal) ==